=== PATIENT | female | born 1945 | race Caucasian/White ===

== ENCOUNTER 2023-05-08 12:35 | Outpatient (OUT) | payer MEDICARE, OTHER, SELFPAY ==
--- OUTSIDE RECORDS SUMMARY | 2023-05-08 12:37 | XMS_ITS | CCD ---
Author Name Unknown Address [address] [place] [address] Organization [facility] Care Team Providers Care Healthcare Management Name Role Phone REQUEST, DR NONE LISTED Primary Care Unavaila SEDRICK Carrion Admitting Unavailable SEDRICK SIMMS Attending Unavailable DR CELESTINO BHATTI Consulting Unavailable SEDRICK SIMMS Consulting Unavailable Constantine Coates Jr. Primary Care Provider SEDRICK SIMMS Referring Unavailable SEDRICK SIMMS Attending Unavailable CONSTANTINE COATES JR Primary Care Unavail able Medications Completed/Discontinued Medications Medication Drug Class(es) Dates Sig (Normalized) Sig (Original) aspirin 81 mg delayed release oral tablet (1 source) Platelet Aggregation Inhibitor, Nonsteroidal Anti-inflammatory Drug Start: 03-06-2013 take 1 tablet by mouth once daily aspirin, enteric coated (ASPIRIN, ENTERIC COATED) 81 mg EC tablet Take 1 tablet by mouth once daily. 0 03/06/2013 Active Comment on above: Take 1 tablet by jina th once daily. Calcium Carbonate / vitamin D3 (1 source) CALCIUM CARBONATE/VITAMIN D3 (CALCIUM + D ORAL) Take by mouth. 0 Active Comment on above: Take by mouth. ferrous sulfate (1 source) FERROUS SULFATE (IRON ORAL) Take by mouth. 0 Active Comment on above: Take by mouth. fluticasone propionate 0.05 mg/actuat metered dose nasal spray (1 source) Corticosteroid Start: 01-09-2013 FLUTICASONE 50 mcg/actuation nasal spray gabapentin 300 mg oral capsule (1 source) Anti-epileptic Agent Start: 07-09-2015 gabapentin (NEURONTIN) 300 mg capsule daily at bedtime. 0 07/09/2015 Active Comment on above: daily at bedtime. Problems Problem Classification Problem Date Documented Da te Episodic/Chronic Cancer of breast (1 source) Malignant tumor of breast ; Translations: [Malignant neoplasm of unspecified site of unspecified female breast] 04-17-2021 Chronic Cancer of breast (6 sources) Personal history of malignant neoplasm of breast; Translations: [History of malignant neoplasm of breast] Onset: 11-25-2014 Episodic Results Test Name Value Interpretation Reference Range Facil juan Mcconnell 06-01-2022 CNOV Office Visit (RADTSA ) RANDI KHAN ([id number]) 1945 F Date Time Provider Department 06/01/22 9:00 AM SEDRICK SIMMS During your visit today, we recorded the following information about you: Sedrick Simms MD 06/15/2022 7:55 AM Addendum Radiation Oncology - Follow Up Note PATIENT NAME: Randi Khan PATIENT DIAGNOSIS/PATIENT IDENTIFICATION: Ms. 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 Thompson (6120 cGy in 34 fractions). She discontinued adjuvant endocrine therapy with Arimidex after 2 years due to poor tolerance. INTERVAL HISTORY/ROS: Ms. Khan returns to clinic today for routine follow-up approximately nine years after the completion of her radiation treatments and one year since her last visit on 06/02/2022. In the interim, she had her annual surveillance mammogram on 05/03/2022 which showed stable posttreatment changes with no radiographic concern for disease (BI-RADS 2). She reports having had a breast exam with her family physician recently which was without concern. Today she denies any pain/discomfort, skin irritation/breakdown, itching or swelling, or any new lumps or bumps in the right breast and reports intact range of motion. She endorses stable energy appetite and hydration. She otherwise denies any recent fevers, chills, headaches, difficulty with speech/swallowing, shortness of breath, chest pain/palpitations, abdominal pain, nausea, vomiting, change in bowel/urinary habits, difficulty with gait/balance, recent falls, etc. The remainder of the review of systems was performed and was otherwise noncontributory. ALLERGIES ALLERGIES No Known Allergies MEDICATIONS: Current Outpatient Medications: FERROUS SULFATE (IRON ORAL) CALCIUM CARBONATE/VITAMIN D3 (CALCIUM + D ORAL) gabapentin (NEURONTIN) 300 mg capsule FLUTICASONE 50 mcg/actuation nasal spray aspirin, enteric coated (ASPIRIN, ENTERIC COATED) 81 mg EC tablet PHYSICAL EXAM: GENERAL: elderly woman sitting in chair in no acute distress. VITALS: There were no vitals taken for this visit. KPS: 90 HEENT: NC/AT, anicteric sclera HEART: S1S2 LUNGS: non-labored breathing ABDOMEN: soft MUSCULOSKELETAL: no peripheral edema, moves all extremities. NEURO: no focal deficit; AANDO X3. RADIOLOGIC DATA: Bilateral Mammogram (05/03/2022) ASSESSMENT AND PLAN: Ms. 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 Thompson (6120 cGy in 34 fractions). She discontinued adjuvant endocrine therapy with Arimidex after 2 years due to poor tolerance. Ms. Khan is doing well clinically approximately 9 years after the completion of her radiation treatments to the right breast with no significant residual sequela at this time. She is both without clinical or radiographic evidence of disease based on recent breast exam by her family physician as well as her annual surveillance mammogram from earlier this year on 05/03/2022 showing stable posttreatment changes with no mammographic concern for disease (BI-RADS 2). I will plan to see her back in 1 year with repeat mammogram. The patient is aware to contact the clinic in the interim should any questions or concerns arise. Thank you for allowing us to participate in the care of this patient. Signed by: Sedrick Simms MD I spent a total of 20 minutes on the date of the service which included preparing to see the patient, [id number] patient care, and counseling and educating the patient/family/caregiv er. This document has been created with the use of voice recognition technology. It may contain inaccuracies, misspellings, inaccurate syntax or inappropriate word context that are a result of the inadequacies/shortcomi ngs of said technology/software. Referring Provider: SEDRICK SIMMS [[id number]] Allergies As of Date: 06/01/2022 (No Known Allergies) Date Reviewed: 06/01/2022 Reviewed by: Flory Dominguez LPN - Fully Assessed Reason for Visit: Breast Cancer [519] Primary Visit Diagnosis:History of breast cancer in female [Z85.3] Order(s):[facility] DIAGNOSTIC BILAT [[id number]] Order #: [id number] FUTURE Prescriptions as of 06/15/2022 - FERROUS SULFATE (IRON ORAL) Take by mouth. - CALCIUM CARBONATE/VITAMIN D3 (CALCIUM + D ORAL) Take by mouth. - gabapentin (NEURONTIN) 300 mg capsule daily at bedtime. - FLUTICASONE 50 mcg/actuation nasal spray - (more content not included)... Normal [facility] MG MAMM DIAGNOSTIC 3D PAM CA Don 05-03-2022 MG MAMM DIAGNOSTIC 3D PAM CAD Patient: RANDI KHAN Exam Date: 05/03/2022 : 1945 Gender:F Ordering : DR. SEDRICK SIMMS M.D. Admission #: [id number] Family : Order #: [id number] CLICK HERE TO VIEW EXAM RADIOLOGY REPORT PROCEDURE: MAMMOGRAM DIAGNOSTIC 3D BILATERAL CAD COMPARISON: MG MAMM DIAGNOSTIC 3D PAM CAD, 04/28/2021. MG MAMM PAM DIAG W CAD, 04/14/2020. MG MAMM PAM DIAG W CAD, 03/26/2019. MG MAMM PAM DIAG W CAD, 03/21/2018. INDICATIONS: History of right breast cancer; follow-up Calculator Name NCI Breast Cancer Risk Assessment Tool 5 Year Breast Cancer Risk n/a% Lifetime Breast Cancer Risk n/a% Personal Breast Cancer Yes, lumpectomy, radiation,67 Personal Ovarian Cancer No Treatments None Family Cancers None LOCATION: [facility] BREAST COMPOSITION: Heterogeneously dense,which may obscure small masses. FINDINGS: DIAGNOSTIC CATEGORY 2--BENIGN FINDING: RIGHT BREAST: No significant suspicious finding. Scattered benign-appearing calcifications are present. Stable large dystrophic calcification and scarring within posterior upper- inner quadrant. No significant change has occurred. LEFT BREAST: No significant suspicious finding. Scattered benign-appearing calcifications are present. No significant change has occurred. RECOMMENDATIONS: ROUTINE MAMMOGRAM AND CLINICAL EVALUATION IN 12 MONTHS. PLEASE NOTE: A NORMAL MAMMOGRAM DOES NOT EXCLUDE THE POSSIBILITY OF BREAST CANCER. A CLINICALLY SUSPICIOUS PALPABLE LUMP SHOULD BE BIOPSIED. Dictated by: Celestino Bhatti M.D. on 05/03/2022 at 09:30 Approved by: Celestino Bhatti M.D. on 05/03/2022 at 09:35 Normal [facility] Encounters Encounter Date Encounter Type Care Provider Facility Start: 06-01-2022 End: 06-01-2022 ambulatory SEDRICK SIMMS Facility:[facility] Start: 06-01-2022 End: 06-01-2022 Patient encounter procedure Sedrick Simms MD Work Phone: Radiation Oncology Comment on above: History of breast ca ncer in female (Primary Dx) Start: 05-03-2022 End: 05-04-[address] NONE LISTED REQUEST Facility: Plan of Treatment Date Care Activity Detail Author Start: 05-06-2023 End: 07-01-2023 Diagnostic mammography computer-aided detcj bi [facility] Radiology Routine History of breast cancer in female Expected: 05/06/2023, Expires: 07/01/2023 [facility] Work Phone: Comment on above: Expected: 05/06/2023 , Expires: 07/01/2023 Start: 04-22-2022 ADVANCE DIRECTIVE DISCUSSION ADVANCE DIRECTIVE DISCUSSION [facility] Start: 04-22-2022 DEPRESSION ASSESSMENT DEPRESSION ASS ESSMENT [facility] Start: 12-21-2021 Influenza vaccination INFLUENZA (#1) [facility] Start: 08-22-2020 COVID-19 VACCINE (2 - Booster for Betsy series) COVID-19 VACCINE (2 - Booster for Betsy series) [facility] Start: 12-06-2011 BONE DENSITY BONE DENSITY [facility] Start: 12-06-2011 PNEUMOCOCCAL: 65+ (1 - PCV) PNEUMOCOCCAL: 65+ (1 - PCV) [facility] Start: 1996 SHINGRIX VACCINE (1 of 2) SHINGRIX VACCINE (1 of 2) [facility] Start: 12-06-1991 COLOGUARD (FIT-DNA) COLOGUARD (FIT-D NA) [facility] Start: 12-06-1991 Colonoscopy COLONOSCOPY [facility] Start: 12-06-1991 COLORECTAL CANCER SCREENING COLORECTAL CANCER SCREENING [facility] Start: 12-06-[address] COLONOGRAPHY [facility] Start: 12-06-1991 DIABETES SCREEN DIABETES SCREEN [facility] Start: 12-06-1991 FECAL OCCULT BLOOD FECAL OCCULT BLOO D [facility] Start: 12-06-1991 LIPID SCREEN LIPID SCREEN [facility] Start: 12-06-1991 SIGMOIDOSCOPY SIGMOIDOSCOPY [facility] Start: 1965 Urine microalbumin profile DTAP,TDAP,TD (1 - Tdap) [facility] Start: 1964 HEPATITIS C SCREENING HEPATITIS C SC DENISE [facility] c Payers Date Payer Category Payer Medicare MEDICARE MEDICAR E A AND B [id number] 2011-Present [phone] [address] [address] [place] [address] Medicare [id number] 2011 Unknown [employer]URANCE FORETHOUGHT SUPPLEMENT [id number] 2011-Present [phone] [address] [address] [place] [address] Indemnity [id number] 1959 Medicare [id number] 1959 Unknown [id number] 1945 Unknown [id number] Social History Date Type Detail Facility Start: 03-06-2013 Tobacco smoking stat us VAIS Never smoked tobacco [facility] Start: 03-06-2013 Tobacco use and exposure Smoke less tobacco non-user [facility] Start: 12-08-2021 Alcohol intake 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 Author Type: Physician Type: Progress Notes Filed: 06/15/2022 7:55 AM Note Text: Radiation Oncology - Follow Up Note PATIENT NAME: Randi Khan PATIENT DIAGNOSIS/PATIENT IDENTIFICATION: Ms. 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 Thompson (6120 cGy in 34 fractions). She discontinued adjuvant endocrine therapy with Arimidex after 2 years due to poor tolerance. INTERVAL HISTORY/ROS: Ms. Khan returns to clinic today for routine follow-up approximately nine years after the completion of her radiation treatments and one year since her last visit on 06/02/2022. In the interim, she had her annual surveillance mammogram on 05/03/2022 which showed stable posttreatment changes with no radiographic concern for disease (BI-RADS 2). She reports having had a breast exam with her family physician recently which was without concern. Today she denies any pain/discomfort, skin irritation/breakdown, itching or swelling, or any new lumps or bumps in the right breast and reports intact range of motion. She endorses stable energy appetite and hydration. She otherwise denies any recent fevers, chills, headaches, difficulty with speech/swallowing, shortness of breath, chest pain/palpitations, abdominal pain, nausea, vomiting, change in bowel/urinary habits, difficulty with gait/balance, recent falls, etc. The remainder of the review of systems was performed and was otherwise noncontributory. ALLERGIES ALLERGIES No Known Allergies MEDICATIONS: Current Outpatient Medications: FERROUS SULFATE (IRON ORAL) CALCIUM CARBONATE/VITAMIN D3 (CALCIUM + D ORAL) gabapentin (NEURONTIN) 300 mg capsule FLUTICASONE 50 mcg/actuation nasal spray aspirin, enteric coated (ASPIRIN, ENTERIC COATED) 81 mg EC tablet PHYSICAL EXAM: GENERAL: elderly woman sitting in chair in no acute distress. VITALS: There were no vitals taken for this visit. KPS: 90 HEENT: NC/AT, anicteric sclera HEART: S1S2 LUNGS: non-labored breathing ABDOMEN: soft MUSCULOSKELETAL: no peripheral edema, moves all extremities. NEURO: no focal deficit; AANDO X3. RADIOLOGIC DATA: Bilateral Mammogram (05/03/2022) ASSESSMENT AND PLAN: Ms. 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 Thompson (6120 cGy in 34 fractions). She discontinued adjuvant endocrine therapy with Arimidex after 2 years due to poor tolerance. Ms. Khan is doing well clinically approximately 9 years after the completion of her radiation treatments to the right breast with no significant residual sequela at this time. She is both without clinical or radiographic evidence of disease based on recent breast exam by her family physician as well as her annual surveillance mammogram from earlier this year on 05/03/2022 showing stable posttreatment changes with no mammographic concern for disease (BI-RADS 2). I will plan to see her back in 1 year with repeat mammogram. The patient is aware to contact the clinic in the interim should any questions or concerns arise. Thank you for allowing us to participate in the care of this patient. Signed by: Sedrick Simms MD I spent a total of 20 minutes on the date of the service which included preparing to see the patient, [id number] patient care, and counseling and educating the patient/family/caregiver. This document has been created with the use of voice recognition technology. It may contain inaccuracies, misspellings, inaccurate syntax or inappropriate word context that are a result of the inadequacies/shortcomings of said technology/software. [facility] History of Present illness Narrative 06-01-2022 Sedrick Simms MD - 06/01/2022 11:49 PM EST Note Date & Type Note Facility 06-01-2022 History of Presen t illness Narrative Radiation Oncology - Follow Up Note PATIENT NAME: Randi Khan PATIENT Signed by: Sedrick Simms MD I spent a total of 20 minutes on the date of the service which included preparing to see the patient, [id number] patient care, and counseling and educating the patient/family/caregiver. This document has been created with the use of voice recognition technology. It may contain inaccuracies, misspellings, inaccurate syntax or inappropriate word context that are a result of the inadequacies/shortcomings of said technology/software. documented in this encounter [facility] Evaluation note Note Date & Type Note Facility Evaluation note Diagnosis History of breast cancer in female- Primary Personal history of malignant neoplasm of breast documented in this encounter [facility] Reason for referral (narrative) Diagnostic Procedure Only (Routine) - Pending Review Note Date & Type Note Facility Reason for referral (narrati ve) Specialty Diagnoses / Procedures Referred By Contac t Referred To Contact [facility] Diagnoses History of breast cancer in female Procedures [facility] DIAGNOSTIC MAMMOGRAPHY COMPUTER-AIDED DETCJ BI Sedrick Simms MD [address] [place] [address] [place] [address] [facility] [address] [place] [address] Referral ID Status Reason Start Date Expiration Date Visits Requested Visits Authorized [id number] Pending Review Auto-Generat ed Referral 05/06/2023 07/01/2023 1 1 [facility] Summary Purpose Family History No Family History Records FoundNo Family History Records Found Advance Directives No Advanced Directives Records FoundNo Advanced Directives Records Found Additional Source Comments INFORMATION SOURCE (unrecogn ized section and content) DATE CREATED AUTHOR 05/15/2022 [facility] DATE CREATED AUTHOR AUTHOR'S ORGANIZ ATION 06/16/2022 [facility] Source Comments (unrecognize d section and content) In the event this informatio n is protected by the Federal Confidentiality of Alcohol and Drug Abuse Patient Records regulations: The Federal rules restrict any use of the information to criminally investigate or prosecute any alcohol or drug abuse patient.[facility] Reason for Visit (unrecogniz ed section and content) Reason Comments Breast Cancer Care Teams (unrecognized sec tion and content) Healthcare Management Relationship Specialty Start Date End Date Constantine Coates Jr. [address] [facility] [address] [place] [id number] PCP - General Internal Medicine 02/12/13 FOR RECORDS PERTAINING TO PATIENTS WHO ARE OR HAVE BEEN ENROLLED IN A CHEMICAL DEPENDENCY/SUBSTANCEABUSE PROGRAM, SOME INFORMATION MAY BE OMITTED. This clinical summary was aggregated from multiple sources. Caution should be exercised in using it in the provision of clinical care. This summary normalizes information from multiple sources, and as a consequence, information in this document may materially change the coding, format and clinical context of patient data. In addition, data may be omitted in some cases. CLINICAL DECISIONS SHOULD BE BASED ON THE PRIMARY CLINICAL RECORDS. [facility]. provides no warranty or guarantee of the accuracy or completeness of information in this document.
--- NOTE | 2023-05-08 12:40 | MM_ITS ---
Patient Name: DANYA CHARLTON MR#: [id number] : 1945 Exam Date: 05/08/2023 Ordering Doctor: Non-Staff Physician RADIOLOGY REPORT PROCEDURE: MM TOMOSYNTHESIS DIAGNOSTIC BI COMPARISON: MG MAMM DIAGNOSTIC 3D PAM CAD, 04/28/2021. MG MAMM DIAGNOSTIC 3D PAM CAD, 05/03/2022. INDICATIONS: history breast cancer in female Calculator Name NCI Breast Cancer Risk Assessment Tool 5 Year Breast Cancer Risk n/a% Lifetime Breast Cancer Risk n/a% Personal Breast Cancer Yes, lumpectomy, radiation,67 Personal Ovarian Cancer No Treatments None Family Cancers None LOCATION: [facility] BREAST COMPOSITION: Heterogeneously dense,which may obscure small masses. FINDINGS: DIAGNOSTIC CATEGORY 2--BENIGN FINDING. NO CHANGE FROM COMPARISON. Scattered benign-appearing nodules are present. Scattered benign-appearing calcifications are present. Scattered benign-appearing lymph nodes are present. RIGHT BREAST: Limited visualization, difficulty positioning the patient to visualize posterior breast tissue. No significant suspicious finding. Asymmetrically small. Area of architectural distortion calcification deep to a linear scar marker, only partially visualized. Grossly stable. LEFT BREAST: No significant suspicious finding. RECOMMENDATIONS: ROUTINE MAMMOGRAM AND CLINICAL EVALUATION IN 12 MONTHS. PLEASE NOTE: A NORMAL MAMMOGRAM DOES NOT EXCLUDE THE POSSIBILITY OF BREAST CANCER. A CLINICALLY SUSPICIOUS PALPABLE LUMP SHOULD BE BIOPSIED. Dictated by: Heriberto Chiang MD on 05/08/2023 at 13:14 Approved by: Heriberto Chiang MD on 05/08/2023 at 13:16
== END 2023-05-08 12:36 | disposition home or self-care (01) ==
LOC: MAMMO 12:35
PROVIDERS: PCP Internal Medicine
DX: Z85.3 Personal history of malignant neoplasm of breast (principal)
CPT/HCPCS: 77066; G0279

== ENCOUNTER 2024-05-13 07:27 | Outpatient (OUT) | payer MEDICARE, OTHER, SELFPAY ==
--- NOTE | 2024-05-13 07:30 | MM_ITS ---
Patient Name: DANYA CHARLTON MR#: [id number] : 1945 Exam Date: 05/13/2024 Ordering Doctor: DR CONSTANTINE COATES D.O. RADIOLOGY REPORT PROCEDURE: MM TOMOSYNTHESIS SCREENING BI COMPARISON: MM TOMOSYNTHESIS DIAGNOSTIC BI, 05/08/2023. MG MAMM DIAGNOSTIC 3D PAM CAD, 05/03/2022. MG MAMM DIAGNOSTIC 3D PAM CAD, 04/28/2021. MG MAMM PAM SCRN W CAD DIG, 01/28/2013. INDICATIONS: Screening Mammogram Calculator Name NCI Breast Cancer Risk Assessment Tool 5 Year Breast Cancer Risk n/a% Lifetime Breast Cancer Risk n/a% Personal Breast Cancer Yes, lumpectomy, radiation,67 Personal Ovarian Cancer No Treatments None Family Cancers None LOCATION: [facility] BREAST COMPOSITION: The breasts are heterogeneously dense,which may obscure small masses. FINDINGS: DIAGNOSTIC CATEGORY 2--BENIGN FINDING: RIGHT BREAST: No significant suspicious finding. Stable surgical changes within posterior upper inner quadrant. Scattered benign-appearing calcifications are present. No significant change has occurred. LEFT BREAST: No significant suspicious finding. Scattered benign-appearing calcifications are present. No significant change has occurred. RECOMMENDATIONS: ROUTINE MAMMOGRAM AND CLINICAL EVALUATION IN 12 MONTHS. PLEASE NOTE: A NORMAL MAMMOGRAM DOES NOT EXCLUDE THE POSSIBILITY OF BREAST CANCER. A CLINICALLY SUSPICIOUS PALPABLE LUMP SHOULD BE BIOPSIED. Dictated by: Justyn Bhatti M.D. on 05/13/2024 at 14:35 Approved by: Justyn Bhatti M.D. on 05/13/2024 at 14:38
--- OUTSIDE RECORDS SUMMARY | 2024-05-13 07:30 | XMS_ITS | CCD ---
Author Organization [facility] Care Team Providers Care [employer] Name Role Phone REQUEST, DR NONE LISTED Primary Care Unavaila SEDRICK Carrion Admitting Unavailable SEDRICK SIMMS Attending Unavailable DR JUSTYN BHATTI Consulting Unavailable SEDRICK SIMMS Consulting Unavailable Drake Coates Jr. Primary Care Provider SEDRICK SIMMS Referring Unavailable SEDRICK SIMMS Attending Unavailable DRAKE COATES JR Primary Care Unavail able Medications Completed/Discontinued Medications Medication Drug Class(es) Dates Sig (Normalized) Sig (Original) aspirin 81 mg delayed release oral tablet (2 sources) Platelet Aggregation Inhibitor, Nonsteroidal Anti-inflammatory Drug Start: 03-06-2013 take 1 tablet by mouth once daily aspirin, enteric coated (ASPIRIN, ENTERIC COATED) 81 mg EC tablet Take 1 tablet by mouth once daily. 0 03/06/2013 Active Comment on above: Take 1 tablet by jina th once daily. Calcium Carbonate / vitamin D3 (2 sources) CALCIUM CARBONATE/VITAMIN D3 (CALCIUM + D ORAL) Take by mouth. 0 Active Comment on above: Take by mouth. ferrous sulfate (2 sources) FERROUS SULFATE (IRON ORAL) Take by mouth. 0 Active Comment on above: Take by mouth. fluticasone propionate 0.05 mg/actuat metered dose nasal spray (2 sources) Corticosteroid Start: 01-09-2013 FLUTICASONE 50 mcg/actuation nasal spray gabapentin 300 mg oral capsule (2 sources) Anti-epileptic Agent Start: 07-09-2015 gabapentin (NEURONTIN) 300 mg capsule daily at bedtime. 0 07/09/2015 Active Comment on above: daily at bedtime. Problems Problem Classification Problem Date Documented Da te Episodic/Chronic Cancer of breast (2 sources) Malignant tumor of breast ; Translations: [Malignant neoplasm of unspecified site of unspecified female breast] 04-17-2021 Chronic Cancer of breast (8 sources) Personal history of malignant neoplasm of breast; Translations: [History of malignant neoplasm of breast] Onset: 11-25-2014 Episodic Results Test Name Value Interpretation Reference Range Facil ity MG MAMM DIAGNOSTIC 3D PAM CA Don 05-03-2022 MG MAMM DIAGNOSTIC 3D PAM CAD Patient: DANYA KHAN Exam Date: 05/03/2022 : 1945 Gender:F Ordering : DR. SEDRICK SIMMS M.D. Admission #: [id number] Family : Order #: [id number] CLICK HERE TO VIEW EXAM RADIOLOGY REPORT [...] No Treatments None Family Cancers None LOCATION: [facility] BREAST COMPOSITION: Heterogeneously dense,which may obscure [...] PALPABLE LUMP SHOULD BE BIOPSIED. Dictated by: Justyn Bhatti M.D. on 05/03/2022 at 09:30 Approved by: Justyn Bhatti M.D. on 05/03/2022 at 09:35 Normal [facility] Vital Signs Date Time Vital Sign Value Performing Clinician Jose Martin scanlon 06-06-2023 10:34-0500 Body temperature 97.9 [degF] Sedrick Simms MD Work Phone: [facility] 06-06-2023 10:34-0500 Body weight 67.3 kg Sedrick Simms MD Work Phone: [facility] 06-06-2023 10:34-0500 Diastolic blood pressure 70 mm[Hg] Sedrick Simms MD Work Phone: [facility] 06-06-2023 10:34-0500 Heart rate 57 /min Sedrick Simms MD Work Phone: [facility] 06-06-2023 10:34-0500 Respiratory rate 16 /min Sedrick Simms MD Work Phone: [facility] 06-06-2023 10:34-0500 SaO2% (BldA) [Mass fraction] 99 % Sedrick Simms MD Work Phone: [facility] 06-06-2023 10:34-0500 Systolic blood pressure 110 mm[Hg] Sedrick Simms MD Work Phone: [facility] Encounters Encounter Date Encounter Type Care Provider Facility Start: 06-06-2023 End: 06-06-2023 ambulatory SEDRICK SIMMS Facility:[facility] Start: 06-06-2023 End: 06-06-2023 Patient encounter procedure Sedrick Simms MD Work Phone: Radiation Oncology Comment on above: History of breast ca ncer in female (Primary Dx) Start: 06-01-2022 End: 06-01-2022 Patient encounter procedure Sedrick Simms MD Work Phone: [facility] Comment on above: History of breast ca ncer in female (Primary Dx) Start: 05-03-2022 End: 05-04-[address] NONE LISTED REQUEST Facility: Plan of Treatment Date Care Activity Detail Author Start: 05-08-2024 End: 07-05-2024 MG Breast - bilateral Diagnostic T[facility]Y DIAGNOSTIC BILATERAL Radiology Routine History of breast cancer in female Expected: 05/08/2024, Expires: 07/05/2024 [facility] Work Phone: Comment on above: Expected: 05/08/2024 , Expires: 07/05/2024 Start: 05-06-2023 End: 07-01-2023 Diagnostic mammography computer-aided detcj bi TONY DIAGNOSTIC BILAT Radiology Routine History of breast cancer in female Expected: 05/06/2023, Expires: 07/01/2023 [facility] Work Phone: Comment on above: Expected: 05/06/2023 , Expires: 07/01/2023 Start: 04-22-2023 Advance Directive Discussion Advance Directive Discussion [facility] Start: 04-22-2023 Depression Assessment Depression Ass essment [facility] Start: 12-21-2022 Covid-19 Vaccine ( season) Covid-19 Vaccine ( season) [facility] Start: 12-21-2022 Influenza vaccination Influenza Vacc ine (#1) [facility] Start: 04-22-2022 ADVANCE DIRECTIVE DISCUSSION ADVANCE DIRECTIVE DISCUSSION [facility] Start: 04-22-2022 DEPRESSION ASSESSMENT DEPRESSION ASS ESSMENT [facility] Start: 12-21-2021 Influenza vaccination INFLUENZA (#1) [facility] Start: 08-22-2020 COVID-19 VACCINE (2 - Booster for Betsy series) COVID-19 VACCINE (2 - Booster for Betsy series) [facility] Start: 12-06-2011 BONE DENSITY BONE DENSITY [facility] Start: 12-06-2011 Pneumococcal Vaccine : 65+ (1 of 1 - PCV) Pneumococcal Vaccine: 65+ (1 of 1 - PCV) [facility] Start: 12-06-2011 PNEUMOCOCCAL: 65+ (1 - PCV) PNEUMOCOCCAL: 65+ (1 - PCV) [facility] Start: 12-06-2011 Screening for osteoporosis Bone Density Screening [facility] Start: 2006 RSV Vaccine (1 - 1-d ose 60+ series) RSV Vaccine (1 - 1-dose 60+ series) [facility] Start: 1996 SHINGRIX VACCINE (1 of 2) SHINGRIX VACCINE (1 of 2) [facility] Start: 12-06-1991 COLOGUARD (FIT-DNA) COLOGUARD (FIT-D NA) [facility] Start: 12-06-1991 Colonoscopy COLONOSCOPY [facility] Start: 12-06-1991 COLORECTAL CANCER SCREENING COLORECTAL CANCER SCREENING [facility] Start: 12-06-[address] COLONOGRAPHY [facility] Start: 12-06-1991 DIABETES SCREEN DIABETES SCREEN [facility] Start: 12-06-1991 Diabetes Screening Diabetes Screenin g [facility] Start: 12-06-1991 FECAL OCCULT BLOOD FECAL OCCULT BLOO D [facility] Start: 12-06-1991 LIPID SCREEN LIPID SCREEN [facility] Start: 12-06-1991 SIGMOIDOSCOPY SIGMOIDOSCOPY Sarah saucedo [facility] Start: 1965 Urine microalbumin profile [facility] Start: 1964 HEPATITIS C SCREENING HEPATITIS C [facility] Start: 1964 Hepatitis C screening Hepatitis C [facility] Payers Date Payer Category Payer Medicare MEDICARE MEDICAR E A AND B [id number] 2011-Present [phone] [address] [address] [place] [address] Medicare [id number] 2011 Unknown [employer]URANCE FOR[employer]OUGHT SUPPLEMENT [id number] 2011-Present [phone] [address] [address] [place] [address] Indemnity [id number] 1959 Medicare [id number] 1959 Unknown [id number] 1945 Unknown [id number] Social History Date Type Detail Facility [facility]: [facility]06[facility] Start: 03-06-2013 Tobacco use and exposure Smoke less tobacco non-user [facility] Start: 12-08-2021 End: 06-06-2023 Alcohol intake Current non-drinker of alcohol (finding) [facility] Start: 1945 Sex Assigned At Not on file [facility] Start: 06-06-2023 History of Social function [facility] Start: 06-06-2023 Tobacco use panel [facility] Adult Depression Scr eening Assessment 0 [facility] History of Present illness Narrative 06-06-2023 Sedrick Simms MD - 06/06/2023 10:44 PM EST Note Date & Type Note Facility 02-15-2024 History of Presen t illness Narrative Images from the original note were not included. Radiation Oncology - Follow Up Note PATIENT NAME: Danya Khan PATIENT DIAGNOSIS/PATIENT IDENTIFICATION: Ms. Khan is a 77-year old woman diagnosed with Stage IA (E2dO1D3) invasive and intra-ductal carcinoma of the upper-inner [...] to clinic today for routine follow-up approximately ten years after the completion of her radiation treatments and one year since her last visit on 06/01/2022. In the interim, she had her annual surveillance mammogram last month on 05/08/2023 showing stable posttreatment changes in the right breast and no concerns in the left breast (BI-RADS 2). Today she denies any pain/discomfort in the breast or any skin irritation/breakdown of her any new lumps or bumps or nipple discharge. She notes intact range of motion. She endorses stable energy good appetite and hydration and stable weight. She otherwise denies any recent fevers, chills, [...] in chair in no acute distress. VITALS: BP 110/70 Pulse 57 Temp 97.9 Resp 16 Wt 148 lb 5.9 oz (67.3kg) SpO2 99% KPS: 90 HEENT: NC/AT, anicteric sclera HEART: S1S2 LUNGS: non-labored breathing ABDOMEN: soft MUSCULOSKELETAL: no peripheral edema, moves all extremities. NEURO: no focal deficit; A&O X3. BREASTS: The patient was examined in the upright, seated position. Her incision in the right breast are well healed. Trace post-radiation pigment changes are noted with no areas of desquamation. No other abnormalities were identified in either breast or axilla. RADIOLOGIC DATA: Bilateral Mammogram (05/08/2023) ASSESSMENT AND PLAN: Ms. 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 Thompson (6120 cGy in 34 fractions). She discontinued adjuvant endocrine therapy with Arimidex after 2 years due to poor tolerance. Ms. Khan is doing well clinically approximately 10 years after the completion of her radiation treatments to the right breast with no significant residual sequela at this time. She is without radiographic or clinical evidence of disease based on mammogram from last month on 05/08/2023 showing stable posttreatment changes (BI-RADS 2) as well as clinical breast exam today. At this point we agreed that she will continue her follow-up and surveillance with her primary care physician and have an open follow-up with us in the radiation medicine clinic. We will order the mammogram for next year. The patient is aware to contact the clinic should any questions or concerns arise. Thank you for allowing us to participate in the care of this patient. Signed by: Sedrick Simms MD I spent a total of 20 minutes on the date of the service which included preparing to see the patient, [id number] patient care, and counseling and educating the patient/family/caregiver. This document has been created with the use of voice recognition technology. It may contain inaccuracies, misspellings, inaccurate syntax or inappropriate word context that are a result of the inadequacies/shortcomings of said technology/software. documented in this encounter [facility] History of Present illness Narrative 06-01-2022 Sedrick Simms MD - 06/01/2022 11:49 PM EST Note Date & Type Note Facility 06-01-2022 History of Presen t illness Narrative Radiation Oncology - Follow Up Note PATIENT NAME: Danya Khan PATIENT Signed by: Sedrick Simms MD I spent a total of 20 minutes on the date of the service which included preparing to see the patient, [id number] patient care, and counseling and educating the patient/family/caregiver. This document has been created with the use of voice recognition technology. It may contain inaccuracies, misspellings, inaccurate syntax or inappropriate word context that are a result of the inadequacies/shortcomings of said technology/software. documented in this encounter [facility] Evaluation note Note Date & Type Note Facility Evaluation note Diagnosis History of breast cancer in female- Primary Personal history of malignant neoplasm of breast documented in this encounter [facility] Evaluation note Note Date & Type Note Facility Evaluation note Diagnosis History of breast cancer in female- Primary Personal history of malignant neoplasm of breast documented in this encounter [facility] Reason for referral (narrative) Diagnostic Procedure Only (Routine) - Pending Review Note Date & Type Note Facility Reason for referral (narrati ve) Specialty Diagnoses / Procedures Referred By Marley krishnamurthy Referred To Contact [facility] Diagnoses History of breast cancer in female Procedures TONY DIAGNOSTIC BILAT DIAGNOSTIC MAMMOGRAPHY COMPUTER-AIDED DETCJ Sedrick Quiles MD [address] [place] [address] [place] [address] [facility] [address] [place] [id number] Referral ID Status Reason Start Date Expiration Date Visits Requested Visits Authorized [id number] Pending Review Auto-Generat ed Referral 05/06/2023 07/01/2023 1 1 [facility] Reason for referral (narrative) Diagnostic Procedure Only (Routine) - Pending Review Note Date & Type Note Facility Reason for referral (narrati ve) Specialty Diagnoses / Procedures Referred By Contjose t Referred To Contact [facility] Diagnoses History of breast cancer in female Procedures TONY DIAGNOSTIC BILATERAL DIAGNOSTIC MAMMOGRAPHY COMPUTER-AIDED DETCJ Sedrick Quiles MD [address] [place] [address] [place] [address] [facility] [address] [place] [address] Referral ID Status Reason Start Date Expiration Date Visits Requested Visits Authorized [id number] Pending Review Auto-Generat ed Referral 05/08/2024 07/05/2024 1 1 [facility] Summary Purpose Family History No Family History Records FoundNo Family History Records Found Advance Directives No Advanced Directives Records FoundNo Advanced Directives Records Found Additional Source Comments INFORMATION SOURCE (unrecogn ized section and content) DATE CREATED AUTHOR 05/15/2022 [facility] DATE CREATED AUTHOR AUTHOR'S ORGANIZ ATION 06/08/2023 [facility] Source Comments (unrecognize d section and content) In the event this informatio n is protected by the Federal Confidentiality of Alcohol and Drug Abuse Patient Records regulations: The Federal rules restrict any use of the information to criminally investigate or prosecute any alcohol or drug abuse patient.[facility] the event this information is protected by the Federal Confidentiality of Alcohol and Drug Abuse Patient Records regulations: The Federal rules restrict any use of the information to criminally investigate or prosecute any alcohol or drug abuse patient.[facility] Reason for Visit (unrecogniz ed section and content) Reason Comments Breast Cancer Care Teams (unrecognized sec tion and content) [employer] Relationship Specialty Start Date End Date Drake Coates JrMaria De Jesus [address] [place] [phone] PCP - General Internal Medicine 02/12/13 [employer] Relationship Specialty Start Date End Date Drake Coates [address] [place] [address] PCP - General Internal Medicine 02/12/13 FOR [...] BE BASED ON THE PRIMARY CLINICAL RECORDS. [facility]. provides no warranty or guarantee of the accuracy or completeness of information in this document.
== END 2024-05-13 07:28 | disposition home or self-care (01) ==
LOC: MAMMO 07:27
PROVIDERS: PCP Internal Medicine; Visit Provider Internal Medicine
DX: Z12.31 Encounter for screening mammogram for malignant neoplasm of breast (principal); Z85.3 Personal history of malignant neoplasm of breast
CPT/HCPCS: 77063; 77067